=== PATIENT | female | born 1980 | race Caucasian/White ===

== ENCOUNTER → 2024-08-19 14:04 | Outpatient (CLI) | payer OTHER, SELFPAY ==
--- NOTE | 2024-08-19 14:06 | DI.CT.S_ITS ---
PROCEDURE: CT ABDOMEN PELVIS W CON INDICATIONS: ABN WT GAIN, H/O 20CM OVARIAN CYST REMOVED,SURV TECHNIQUE: After the administration of intravenous contrast, axial sections acquired from the lung bases to the pubic symphysis. Coronal and sagittal reformats were performed. For radiation dose reduction, the following was used: automated exposure control, adjustment of mA and/or kV according to patient size. COMPARISON: None. FINDINGS: Image quality: Diagnostic. Lower Chest: No significant findings. ABDOMEN: Liver: No solid mass. Gallbladder: There is no evidence of gallbladder distension or inflammation but there are peripherally calcified stones within the gallbladder lumen, approximately 3-4 each measuring just above or below 1 cm in size. Biliary ducts: No biliary dilation. Pancreas: No ductal dilation. Spleen: Size is within normal limits. Adrenal Glands: No adrenal nodules. Kidneys and Ureters: No hydronephrosis. No solid mass. No complex renal cystic lesion which requires follow up. Stomach and Bowel: Normal colonic caliber, without significant wall thickening. Generalized colonic obstipation, right greater than left. Peritoneum: No abnormal intraperitoneal fluid. No free air. Ventral Wall: No significant ventral hernia. Abdominal Nodes: No retroperitoneal or mesenteric adenopathy by size criteria. Vessels: Aorta and inferior vena cava are normal in size. PELVIS: Pelvic Organs: Unremarkable. Bladder: No bladder wall thickening, accounting for underdistention. Pelvic Nodes: No enlarged lymph nodes. Miscellaneous: No inguinal hernias are seen. Generalized colonic obstipation, right greater than left. Bones: No aggressive osseous abnormality. IMPRESSION: Peripherally calcified gallstones are present within the gallbladder lumen, measuring just above and below 1 cm in diameter, but without associated evidence of gallbladder inflammation or ductal distension. Generalized colonic obstipation, within the abdomen and pelvis, right greater than left. Dictated by: Art Melendez M.D. on 08/19/2024 at 16:26 Approved by: Art Melendez M.D. on 08/19/2024 at 16:28
== END ==
LOC: CT 14:05
PROVIDERS: Family Provider Nurse Practitioner; PCP Family Medicine; Referring Provider Family Medicine; Visit Provider Family Medicine
DX: K80.20 Calculus of gallbladder without cholecystitis without obstruction (principal); K59.00 Constipation, unspecified; R63.5 Abnormal weight gain; Z87.42 Personal history of other diseases of the female genital tract
CPT/HCPCS: 74177; Q9967